=== PATIENT | female | born 1985 | race African-American/Black ===

== ENCOUNTER 2020-06-02 00:09 | Emergency (ER) | payer OTHER ==
[2020-06-02] MEDS ORDERED: ACETAMINOPHEN 500 MG TAB ONE (00:43)
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
[2020-06-02 02:28] VITALS: TEMP 98.4
[2020-06-02 02:31] VITALS: BP 139/95; O2SAT 100
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
== END 2020-06-02 02:21 | disposition home or self-care (01) ==
LOC: ER 00:09
DX: S30.0XXA Contusion of lower back and pelvis, initial encounter (principal); S70.01XA Contusion of right hip, initial encounter; V44.5XXA Car driver injured in collision with heavy transport vehicle or bus in traffic accident, initial encounter; I10 Essential (primary) hypertension; F41.9 Anxiety disorder, unspecified; Z98.84 Bariatric surgery status
CPT/HCPCS: 72131; 72170; 81025; 99284